=== PATIENT | female | born 1985 | race Hispanic/Latino ===

== ENCOUNTER 2019-02-07 09:03 | Emergency (ER) | payer BC ==
--- OUTSIDE RECORDS SUMMARY | 2019-02-07 09:08 | XMS REPORT | Encounter Summary ---
:1985 Author Care Team Providers Name Role Phone Alessandro Heredia Primary Care Provider [phone] Reason for Visit New Patient Instructions 1. Crush injury of thumb Discussion Note: None recorded.Patient educational handouts: No information available. Plan of Care Reminders Provider Appointments None recorded. Lab None recorded. Referral None recorded. Procedures None recorded. Surgeries None recorded. Imaging None recorded. Medications Name Start Date Lo Loestrin Fe 1 mg-10 mcg (24)/10 mcg (2) tablet 10/04/2018 Medications Administered None recorded. Vitals Height Weight BMI Blood Pressure 63 in 194 lbs 34.4 kg/m2 122/80 mm[Hg] Lab Results None recorded. Allergies Code Code System Name Reaction Severity Status Onset NKDA Problems Name Status Onset Date Source Urinary Tract Infectious Disease Active Encounter Procedures Date Name Performed by Caesarean Section Information not available Caesarean Section Information not available Tonsillectomy Information not available Vaccine List None recorded. Social History Tobacco Smoking Status Former Smoker Past Encounters 10/04/2018 Crush Injury of Thumb Manas Carranza MD: [address] [place] [address] [address], [place] [address], Ph. [phone] History of Present Illness Hand/Fingers Reported By: Patient HPI: Hand Dominance: right. Location: right. Quality: gnawing. Severity: mild. Duration: continuous since onset. Timing: acute; injured the right thumb september 07. Context: fall. Previous Surgery: none. Prior Imaging: x ray. Previous Injections: none. Previous PT: none. Work Related: no. Working: no Review of Systems: ROS as noted in the HPI Review of Systems None recorded. Physical Exam Hand Reported By: Patient Constitutional: General Appearance: obese Cardiovascular System: Arterial Pulses Right: radial pulse normal, ulnar pulse normal. Arterial Pulses Left: radial pulse normal, ulnar pulse normal. Edema Right: none. Edema Left: none. Varicosities Right: no varicosities, capillary refill test normal. Varicosities Left: no varicosities, capillary refill test normal Psychiatric: Orientation: oriented to person, oriented to place, oriented to time. Mood and Affect: active and alert, normal affect, normal mood Hands and Digits: Inspection Right: ; there is a hematoma present inn the dital ortion of the thumb
--- NOTE | 2019-02-07 10:52 | RAD REPORT ---
EXAM DESCRIPTION: RAD - Ribs Left - 02/07/2019 10:08 am CLINICAL HISTORY: Left rib pain FINDINGS: No fracture is seen
--- NOTE | 2019-02-07 10:53 | RAD REPORT ---
EXAM DESCRIPTION: Bobo Single View02/07/2019 10:00 am CLINICAL HISTORY: Chest pain COMPARISON: none FINDINGS: A calcified granuloma is present within the left lung The lungs appear clear of acute infiltrate. The heart is normal size IMPRESSION: No acute abnormalities displayed
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
[2019-02-07 11:52] VITALS: TEMP 97.8; O2SAT 98
[2019-02-07 11:55] VITALS: BP 116/76
== END 2019-02-07 11:28 | disposition home or self-care (01) ==
LOC: ER 09:03
DX: S20.212A Contusion of left front wall of thorax, initial encounter (principal); S20.222A Contusion of left back wall of thorax, initial encounter; V87.8XXA Person injured in other specified noncollision transport accidents involving motor vehicle (traffic), initial encounter
CPT/HCPCS: 71045; 99283